=== PATIENT | female | born 1935 | race Caucasian/White ===

== ENCOUNTER → 2019-10-12 | Outpatient (CLI) | payer OTHER ==
[2019-10-12 14:30] LABS: ABSOLUTE EOSINOPHILS 0.1 thou/uL (0.0-0.7); ABSOLUTE LYMPHOCYTES 1.2 thou/uL (0.8-5.3); ABSOLUTE MONOCYTES 0.3 thou/uL (0.0-1.2); ABSOLUTE NEUTROPHILS 1.6 thou/uL (1.6-8.1); BASOPHILS 0.9 %; EOSINOPHILS 2.3 %; HEMATOCRIT 29.3 % (37.0-47.0); HEMOGLOBIN 9.3 gm/dL (12.0-15.0); LYMPHOCYTES 37.4 %; MCH 23.3 pg (26.0-34.0); MCHC 31.7 g/dL (28.0-37.0); MCV 73.5 fL (80.0-100.0); MONOCYTES 8.4 %; NUCLEATED RBCS 0 /100WBC; PLATELET COUNT* 119 thou/uL (150-400); RBC 3.99 mil/uL (4.20-5.00); RDW-CV 18.2 % (10.5-14.5); WBC 3.1 thou/uL (4.0-11.0)
== END ==
LOC: M.LAB 13:53
PROVIDERS: Nurse Practitioner Adult Health
DX: D50.9 Iron deficiency anemia, unspecified (principal)

== ENCOUNTER → 2020-04-02 | Outpatient (CLI) | payer MEDICARE ==
[2020-04-02 12:50] LABS: ABSOLUTE EOSINOPHILS 0.1 thou/uL (0.0-0.7); ABSOLUTE LYMPHOCYTES 1.1 thou/uL (0.8-5.3); ABSOLUTE MONOCYTES 0.3 thou/uL (0.0-1.2); ABSOLUTE NEUTROPHILS 2.6 thou/uL (1.6-8.1); EOSINOPHILS 2.6 %; HEMATOCRIT 30.7 % (37.0-47.0); HEMOGLOBIN 10.3 gm/dL (12.0-15.0); LYMPHOCYTES 25.8 %; MCHC 33.5 g/dL (28.0-37.0); MCV 77.8 fL (80.0-100.0); MONOCYTES 7.7 %; MPV 7.8 fl. (7.2-11.1); NUCLEATED RBCS 0 /100WBC; PLATELET COUNT* 134 thou/uL (150-400); POLYS 62.9 %; RBC 3.94 mil/uL (4.20-5.00); RDW-CV 17.2 % (10.5-14.5); WBC 4.2 thou/uL (4.0-11.0)
[2020-04-02 13:18] LABS: % SATURATION 11 % (20-39); IRON 44 ug/dL (50-175)
== END ==
LOC: M.LAB 12:22
PROVIDERS: Nurse Practitioner Adult Health
DX: D64.9 Anemia, unspecified (principal)